=== PATIENT | male | born 1935 | race Caucasian/White ===

== ENCOUNTER 2016-12-11 15:32 | Emergency (ER) | payer MEDICARE, BC ==
[~2016-12-11] VITALS: Wt 108.9 kg
[~2016-12-11 15:32] MED LIST: AMARYL4 MG PO; ASPIRIN325 M2 PO; BYSTOLIC10 MG PO; CEPHALEXIN500 M1 PO; CLONIDINE0.1 MG; DIOVAN160 MG PO; FLOMAX0.4 MG PO; GLIMEPIRIDE1 MG PO; JANUVIA50 MG PO; KEFLEX500 MG PO; LOPRESSOR50 MG PO; METAMUCIL3.4 GM/DOS PO; MILK OF MAGNESI1 TAB PO; PRAVACHOL40 MG PO; PRAVASTATIN SOD80 MG PO; PROSCAR5 M1 PO; TEKTURNA150 MG PO; TOVIAZ8 MG PO; VALSARTAN160 MG; VICODIN 5/500 505 MG PO
[2016-12-11 15:33] VITALS: BP 174/76
[2016-12-11] MEDS ORDERED: GABAPENTIN TAB600 MG PO (15:34)
[2016-12-11] MEDS ORDERED: PAROXETINE HCL20 MG PO (15:37)
[2016-12-11 16:23] LABS: BASO % 0.3 % (0.0-1.0); EOS # 0.2 10*3/uL (0.0-0.4); EOS % 2.1 % (1.0-4.0); HEMATOCRIT 43.1 % (42.0-52.0); HEMOGLOBIN 14.4 g/dl (14.0-18.0); IG # 0.1 10*3/uL (0.0-0.1); LYMPH # 1.3 10*3/uL (1.3-4.4); LYMPH % 12.4 % (27.0-41.0); MEAN CORPUSCULAR HGB 28.4 pg (27.0-31.0); MEAN CORPUSCULAR HGB CONC 33.4 g/dl (33.0-37.0); MEAN PLATELET VOLUME 11.1 fl (9.6-12.3); MONO # 0.7 10*3/uL (0.1-1.0); MONO % 6.2 % (3.0-9.0); NEUT # 8.2 10*3/uL (2.3-7.9); NEUT % 78.4 % (47.0-73.0); PLATELET COUNT AUTOMATED 230 10*3/uL (130-400); RED BLOOD COUNT 5.07 10*6/uL (4.50-5.90); RED CELL DISTRI WIDTH 13.7 % (0-14.5); WHITE BLOOD COUNT 10.4 10*3/uL (4.8-10.8)
[2016-12-11 16:46] LABS: ALBUMIN 3.5 gm/dl (3.1-4.5); BILIRUBIN, TOTAL 0.6 mg/dl (0.2-1.0); POTASSIUM 4.9 mmol/L (3.5-5.1); TOTAL PROTEIN 7.3 gm/dL (6.4-8.2); URIC ACID 6.6 mg/dL (3.5-7.2)
[2016-12-11] MEDS ORDERED: CEPHALEXIN500 M1 PO (17:05)
== END 2016-12-11 17:07 | disposition home or self-care (01) ==
LOC: ED 15:32
PROVIDERS: Nurse Practitioner Family
DX: L03.116 Cellulitis of left lower limb (principal); Z90.89 Acquired absence of other organs; Z96.652 Presence of left artificial knee joint; Z79.82 Long term (current) use of aspirin; Z88.5 Allergy status to narcotic agent; N39.41 Urge incontinence

== ENCOUNTER 2020-01-12 18:11 | Emergency (ER) | payer MEDICARE, BC ==
[~2020-01-12] VITALS: Ht 177.8 cm; Wt 107.0 kg
[~2020-01-12 18:11] MED LIST changes: +GABAPENTIN TAB600 MG PO; +PAROXETINE HCL20 MG PO
[2020-01-12 18:52] LABS: BASO % 0.2 % (0.0-1.0); EOS # 0.2 10*3/uL (0.0-0.4); EOS % 1.7 % (1.0-4.0); HEMATOCRIT 47.8 % (42.0-52.0); HEMOGLOBIN 15.5 g/dl (14.0-18.0); LYMPH # 1.4 10*3/uL (1.3-4.4); LYMPH % 11.7 % (27.0-41.0); MEAN CELL VOLUME 87.7 fl (80.0-94.0); MEAN CORPUSCULAR HGB 28.4 pg (27.0-31.0); MEAN CORPUSCULAR HGB CONC 32.4 g/dl (33.0-37.0); MEAN PLATELET VOLUME 11.7 fl (9.6-12.3); MONO # 0.8 10*3/uL (0.1-1.0); MONO % 6.4 % (3.0-9.0); NEUT # 9.6 10*3/uL (2.3-7.9); NEUT % 79.3 % (47.0-73.0); PLATELET COUNT AUTOMATED 229 10*3/uL (130-400); RED BLOOD COUNT 5.45 10*6/uL (4.50-5.90); RED CELL DISTRI WIDTH 13.3 % (0-14.5); WHITE BLOOD COUNT 12.1 10*3/uL (4.8-10.8)
[2020-01-12 19:04] LABS: ACT PARTIAL THROMBO TIME 27.6 SECONDS (20.0-32.1); INTERNATIONAL NORM RATIO 0.9 (2.0-3.5)
[2020-01-12 19:08] LABS: ALBUMIN 3.6 gm/dl (3.1-4.5); CREATININE 1.55 mg/dL (0.70-1.30); POTASSIUM 4.7 mmol/L (3.5-5.1); TOTAL PROTEIN 7.1 gm/dL (6.4-8.2)
[2020-01-12 19:14] LABS: TROPONIN I 0.086 ng/ml (<0.045)
[2020-01-12 22:47] VITALS: BP 148/81
== END 2020-01-12 22:15 | disposition short-term general hospital (02) ==
LOC: ED 18:11
PROVIDERS: Emergency Medicine
DX: I48.20 Chronic atrial fibrillation, unspecified (principal); R79.89 Other specified abnormal findings of blood chemistry; I11.0 Hypertensive heart disease with heart failure; I50.9 Heart failure, unspecified; E11.9 Type 2 diabetes mellitus without complications; E78.5 Hyperlipidemia, unspecified; M19.90 Unspecified osteoarthritis, unspecified site; Z88.5 Allergy status to narcotic agent; Z79.2 Long term (current) use of antibiotics; Z79.82 Long term (current) use of aspirin; Z79.899 Other long term (current) drug therapy

== ENCOUNTER 2020-02-11 20:42 | Inpatient (IN) | payer MEDICARE, BC ==
[2020-02-11] VITALS (13 sets, daily range): BP systolic 90–153; BP diastolic 52–84
[~2020-02-11] VITALS: Ht 177.8 cm; Wt 105.3 kg
[~2020-02-11 20:42] MED LIST changes: +ASPIRIN CHEWABL81 MG PO; -ASPIRIN325 M2 PO
[2020-02-11 21:04] LABS: BASO % 0.2 % (0.0-1.0); EOS # 0.2 10*3/uL (0.0-0.4); EOS % 2.1 % (1.0-4.0); HEMATOCRIT 47.4 % (42.0-52.0); HEMOGLOBIN 15.3 g/dl (14.0-18.0); LYMPH # 1.2 10*3/uL (1.3-4.4); LYMPH % 11.8 % (27.0-41.0); MEAN CELL VOLUME 88.9 fl (80.0-94.0); MEAN CORPUSCULAR HGB 28.7 pg (27.0-31.0); MEAN CORPUSCULAR HGB CONC 32.3 g/dl (33.0-37.0); MEAN PLATELET VOLUME 11.2 fl (9.6-12.3); MONO # 0.6 10*3/uL (0.1-1.0); MONO % 6.3 % (3.0-9.0); NEUT # 7.8 10*3/uL (2.3-7.9); NEUT % 78.9 % (47.0-73.0); PLATELET COUNT AUTOMATED 249 10*3/uL (130-400); RED BLOOD COUNT 5.33 10*6/uL (4.50-5.90); RED CELL DISTRI WIDTH 13.4 % (0-14.5); WHITE BLOOD COUNT 9.9 10*3/uL (4.8-10.8)
[2020-02-11 21:21] LABS: ACT PARTIAL THROMBO TIME 27.9 SECONDS (20.0-32.1)
[2020-02-11] MEDS ORDERED: OMEPRAZOLE MAGN20 MG PO (21:21)
[2020-02-11] MEDS ORDERED: CYCLOBENZAPRINE10 MG PO (21:22)
[2020-02-11] MEDS ORDERED: LISINOPRIL10 M1 PO (21:22)
[2020-02-11] MEDS ORDERED: LASIX20 MG PO (21:26)
[2020-02-11 21:27] LABS: ALBUMIN 3.3 gm/dl (3.1-4.5); CREATININE 1.85 mg/dL (0.70-1.30); POTASSIUM 4.4 mmol/L (3.5-5.1)
[2020-02-11] MEDS ORDERED: HYDROCODONE-AC1 EAC1 PO (21:28)
[2020-02-11 21:29] LABS: TROPONIN I 0.097 ng/ml (<0.045)
[2020-02-11] MEDS ORDERED: METOPROLOL SUCC25 M2 PO (21:29)
[2020-02-11] MEDS ORDERED: CLONIDINE HCL0.1 MG PO (23:48)
[2020-02-11] MEDS ORDERED: OXYGEN NAS (23:49)
[2020-02-12 03:37] LABS: BASO % 0.4 % (0.0-1.0); EOS # 0.2 10*3/uL (0.0-0.4); EOS % 2.3 % (1.0-4.0); HEMATOCRIT 44.8 % (42.0-52.0); HEMOGLOBIN 14.3 g/dl (14.0-18.0); LYMPH # 1.5 10*3/uL (1.3-4.4); LYMPH % 17.7 % (27.0-41.0); MEAN CELL VOLUME 89.8 fl (80.0-94.0); MEAN CORPUSCULAR HGB 28.7 pg (27.0-31.0); MEAN CORPUSCULAR HGB CONC 31.9 g/dl (33.0-37.0); MONO # 0.7 10*3/uL (0.1-1.0); MONO % 8.3 % (3.0-9.0); NEUT # 5.9 10*3/uL (2.3-7.9); NEUT % 70.7 % (47.0-73.0); PLATELET COUNT AUTOMATED 227 10*3/uL (130-400); RED BLOOD COUNT 4.99 10*6/uL (4.50-5.90); RED CELL DISTRI WIDTH 13.5 % (0-14.5); WHITE BLOOD COUNT 8.3 10*3/uL (4.8-10.8)
[2020-02-12 03:50] LABS: CREATININE 1.59 mg/dL (0.70-1.30); POTASSIUM 4.8 mmol/L (3.5-5.1)
[2020-02-12 03:55] LABS: PHOSPHOROUS 3.9 mg/dL (2.5-4.9)
[2020-02-12 04:01] LABS: THYROID STIM HORMONE (HS) 4.48 uIU/ml (0.358-4.75)
[2020-02-12 07:45] LABS: VITAMIN D, 25-HYDROXY 14.5 ng/mL (30-100)
== END 2020-02-12 08:45 | disposition short-term general hospital (02) | DRG 280 ==
LOC: ED 20:42 → 4E 22:07 → EDHOLD 22:07 → 4E 23:04
PROVIDERS: Emergency Medicine; Family Medicine; ADMIT Internal Medicine
DX: I21.4 Non-ST elevation (NSTEMI) myocardial infarction (principal); N17.0 Acute kidney failure with tubular necrosis; J96.90 Respiratory failure, unspecified, unspecified whether with hypoxia or hypercapnia; I47.1 Supraventricular tachycardia; E87.1 Hypo-osmolality and hyponatremia; E44.0 Moderate protein-calorie malnutrition; I11.0 Hypertensive heart disease with heart failure; K21.9 Gastro-esophageal reflux disease without esophagitis; F32.9 Major depressive disorder, single episode, unspecified; Z96.653 Presence of artificial knee joint, bilateral; Z96.1 Presence of intraocular lens; N40.0 Benign prostatic hyperplasia without lower urinary tract symptoms; I50.9 Heart failure, unspecified; E83.41 Hypermagnesemia; E11.65 Type 2 diabetes mellitus with hyperglycemia; I48.0 Paroxysmal atrial fibrillation; E78.5 Hyperlipidemia, unspecified; E11.42 Type 2 diabetes mellitus with diabetic polyneuropathy; E66.9 Obesity, unspecified; Z88.5 Allergy status to narcotic agent; Z88.8 Allergy status to other drugs, medicaments and biological substances; Z79.82 Long term (current) use of aspirin; Z79.899 Other long term (current) drug therapy; Z68.33 Body mass index [BMI] 33.0-33.9, adult; Z98.42 Cataract extraction status, left eye; Z98.41 Cataract extraction status, right eye; Z90.5 Acquired absence of kidney; Z90.49 Acquired absence of other specified parts of digestive tract; Z82.49 Family history of ischemic heart disease and other diseases of the circulatory system

== ENCOUNTER 2020-08-14 10:05 | Inpatient (IN) | payer MEDICARE, BC ==
[~2020-08-14] VITALS: Ht 175.2 cm; Wt 108.2 kg
[~2020-08-14 10:05] MED LIST changes: +CLONIDINE HCL0.1 MG PO; +CYCLOBENZAPRINE10 MG PO; +HYDROCODONE-AC1 EAC1 PO; +LASIX20 MG PO; +LISINOPRIL10 M1 PO; +METOPROLOL SUCC25 M2 PO; +OMEPRAZOLE MAGN20 MG PO; +OXYGEN NAS
[2020-08-14 10:07] VITALS: BP 141/76
[2020-08-14 10:42] LABS: BASO % 0.3 % (0.0-1.0); EOS % 0.4 % (1.0-4.0); HEMATOCRIT 42.9 % (42.0-52.0); LYMPH # 0.7 10*3/uL (1.3-4.4); LYMPH % 5.8 % (27.0-41.0); MEAN CELL VOLUME 87.7 fl (80.0-94.0); MEAN CORPUSCULAR HGB CONC 30.8 g/dl (33.0-37.0); MEAN PLATELET VOLUME 11.6 fl (9.6-12.3); MONO # 0.6 10*3/uL (0.1-1.0); MONO % 5.7 % (3.0-9.0); NEUT # 9.8 10*3/uL (2.3-7.9); NEUT % 87.4 % (47.0-73.0); PLATELET COUNT AUTOMATED 198 10*3/uL (130-400); RED BLOOD COUNT 4.89 10*6/uL (4.50-5.90); RED CELL DISTRI WIDTH 13.9 % (0-14.5); WHITE BLOOD COUNT 11.2 10*3/uL (4.8-10.8)
[2020-08-14 10:58] LABS: ACT PARTIAL THROMBO TIME 28.3 SECONDS (20.0-32.1)
[2020-08-14 11:00] LABS: ALBUMIN 3.3 gm/dl (3.1-4.5); CREATININE 1.45 mg/dL (0.70-1.30); POTASSIUM 4.7 mmol/L (3.5-5.1)
[2020-08-14 11:09] LABS: TROPONIN I 0.047 ng/ml (<0.045)
[2020-08-14 11:20] LABS: ABG BASE EXCESS 1.4 mmol/L (-2.0-2.0); ARTERIAL BLOOD GAS PH 7.328 (7.35-7.45)
--- NOTE | 2020-08-14 13:12 | NUR ---
PT LEAVING DEPARTMENT FOR TRANSPORT TO ROOM 428
[2020-08-14 13:13] VITALS: BP 138/76
--- NOTE | 2020-08-14 13:30 | NUR ---
Time: 1329 A 84 year old MALE admitted to under services of FLO RUBIN DO. Pt. arrived via bed from ER PA. Chief complaint: CHF. GAGANDEEP BERGERON
[2020-08-14 13:45] VITALS: BP 154/69
[2020-08-14 16:00] VITALS: BP 153/86
[2020-08-14 20:00] VITALS: BP 164/74
--- NOTE | 2020-08-14 20:00 | NUR ---
INCONTINENT AT THIS TIME & YELLING OUT. PATRICIA CARE PROVIDED. PT. ENCOURAGED TO USE CALL LIGHT. VERBALIZED UNDERSTANDING. CALL LIGHT WITHIN REACH/BED ALARM INTACT.
--- NOTE | 2020-08-14 22:00 | NUR ---
TOOK PO MEDICATION WITH MUCH DIFFICULTY. ASSIST OF PA TO ROLL PATIENT OVER ON HIS BACK TO GIVE HIM A PO MEDICATION.
[2020-08-15] VITALS: BP 166/76
--- NOTE | 2020-08-15 06:00 | NUR ---
BLADDER SCANNED FOR APPROXIMATELY [address] FRENCH PERTAINING TO BLADDER SCAN RESULTS. NO NEW ORDERS RECEIVED.
[2020-08-15 06:07] LABS: BASO % 0.2 % (0.0-1.0); EOS # 0.1 10*3/uL (0.0-0.4); EOS % 1.2 % (1.0-4.0); HEMATOCRIT 43.1 % (42.0-52.0); LYMPH # 0.7 10*3/uL (1.3-4.4); LYMPH % 8.4 % (27.0-41.0); MEAN CELL VOLUME 88.5 fl (80.0-94.0); MEAN CORPUSCULAR HGB 27.5 pg (27.0-31.0); MEAN CORPUSCULAR HGB CONC 31.1 g/dl (33.0-37.0); MEAN PLATELET VOLUME 11.7 fl (9.6-12.3); MONO # 0.8 10*3/uL (0.1-1.0); MONO % 9.4 % (3.0-9.0); NEUT # 6.9 10*3/uL (2.3-7.9); NEUT % 80.2 % (47.0-73.0); PLATELET COUNT AUTOMATED 191 10*3/uL (130-400); RED BLOOD COUNT 4.87 10*6/uL (4.50-5.90); WHITE BLOOD COUNT 8.5 10*3/uL (4.8-10.8)
--- NOTE | 2020-08-15 06:15 | NUR ---
PT. VOIDED APPROXIMATELY 50 CC'S; URINE SPECIMEN SENT.
[2020-08-15 06:19] LABS: ACT PARTIAL THROMBO TIME 28.3 SECONDS (20.0-32.1)
[2020-08-15 06:25] LABS: ALBUMIN 3.2 gm/dl (3.1-4.5); ALKALINE PHOSPHATASE 59 U/L (45-117); BUN 30 mg/dl (7-24); CHLORIDE 106 mmol/L (98-107); CREATININE 1.32 mg/dL (0.70-1.30); POTASSIUM 4.5 mmol/L (3.5-5.1); SGOT/AST 8 IU/L (3-35); SGPT/ALT 12 U/L (12-78); SODIUM 140 mmol/L (136-145); TOTAL PROTEIN 6.8 gm/dL (6.4-8.2)
[2020-08-15 06:41] LABS: BILIRUBIN NEGATIVE; BLOOD NEGATIVE (NEGATIVE); CLARITY CLEAR (CLEAR); COLOR YELLOW (YELLOW); GLUCOSE NEGATIVE; KETONE NEGATIVE; LEUKO ESTERASE NEGATIVE (NEGATIVE); NITRITE NEGATIVE (NEGATIVE); SPECIFIC GRAVITY 1.015 (1.001-1.030); UROBILINOGEN 0.2 E.U./dl (0.0-1.0)
[2020-08-15 06:49] LABS: BACTERIA 2+; HYALINE CAST 16-20
[2020-08-15 06:50] LABS: MUCOUS 2+
[2020-08-15 07:30] LABS: VITAMIN D, 25-HYDROXY 17.7 ng/mL (30-100)
[2020-08-15 08:00] VITALS: BP 151/62
--- NOTE | 2020-08-15 08:16 | NUR ---
24 HR chart check completed.
--- NOTE | 2020-08-15 08:35 | NUR ---
PATIENT ASSISTED TO BR, LARGE BM
--- NOTE | 2020-08-15 08:45 | NUR ---
ASSISTED TO RECLINER AND POSITIONED FOR COMFORT. RESPIRATIONS EASY. LUNGS DIMINISHED, CLEAR. PULSE OX 94% 4L. TRACE PEDAL EDEMA. CALL LIGHT WITHIN REACH. NO VOICED COMPLAINTS. BED ALARM MAINTAINED FOR SAFETY
--- NOTE | 2020-08-15 10:00 | NUR ---
DR JAEVD AND RESIDENT HERE TO ASSESS PATIENT AND DISCUSS PLAN OF CARE
[2020-08-15 12:00] VITALS: BP 148/78
--- NOTE | 2020-08-15 12:00 | NUR ---
DR DANIEL CALLED IN, REQUESTING O2 BE TITRATED. PULSE OX 94-95% 4L. TITRATED TO 3L. WILL MONITOR
[2020-08-15 16:00] VITALS: BP 138/67
--- NOTE | 2020-08-15 16:00 | NUR ---
PULSE OX 99% 3L. DENIES SHORTNESS OF BREATH. NO DISTRESS. CALL LIGHT WITHIN REACH. NO VOICED COMPLAINTS
--- NOTE | 2020-08-15 18:00 | NUR ---
PATIENT SITTING IN RECLINER. DISORIENTED TO PLACE, REORIENTS EASILY. NO SHORTNESS OF BREATH NOTED, O2 FURTHER TITRATED TO 2L. CALL LIGHT WITHIN REACH. NO VOICED COMPLAINTS
--- NOTE | 2020-08-15 18:42 | NUR ---
REQUESTED AND RECEIVED TYLENOL PER PRN ORDER FOR COMPLAINTS OF HEADACHE RATING A 5. CALL LIGHT WITHIN REACH WILL MONITOR
--- NOTE | 2020-08-15 19:20 | NUR ---
STATES RELIEF FROM EARLIER TYLENOL. CALL LIGHT WITHIN REACH. NO FURTHER VOICED COMPLAINTS
[2020-08-15 20:00] VITALS: BP 113/66
--- NOTE | 2020-08-15 20:00 | NUR ---
[place]. PLEASANT AND COOPERATIVE. LYING IN BED ON LT SIDE. TOOK PO MEDS WITHOUT DIFFICULTY. NO C/O VOICED. CALL LIGHT IN REACH.
[2020-08-16] VITALS: BP 115/78
--- NOTE | 2020-08-16 | NUR ---
RESTING QUIETLY IN BED. VSS
--- NOTE | 2020-08-16 05:18 | NUR ---
24 HR chart check completed.
[2020-08-16 06:25] LABS: BASO % 0.3 % (0.0-1.0); EOS # 0.2 10*3/uL (0.0-0.4); EOS % 2.7 % (1.0-4.0); HEMATOCRIT 44.2 % (42.0-52.0); LYMPH # 0.8 10*3/uL (1.3-4.4); LYMPH % 11.2 % (27.0-41.0); MEAN CELL VOLUME 88.8 fl (80.0-94.0); MEAN CORPUSCULAR HGB 27.7 pg (27.0-31.0); MEAN CORPUSCULAR HGB CONC 31.2 g/dl (33.0-37.0); MEAN PLATELET VOLUME 11.3 fl (9.6-12.3); MONO # 0.6 10*3/uL (0.1-1.0); MONO % 8.5 % (3.0-9.0); NEUT # 5.8 10*3/uL (2.3-7.9); NEUT % 76.8 % (47.0-73.0); PLATELET COUNT AUTOMATED 180 10*3/uL (130-400); RED BLOOD COUNT 4.98 10*6/uL (4.50-5.90); RED CELL DISTRI WIDTH 13.9 % (0-14.5); WHITE BLOOD COUNT 7.5 10*3/uL (4.8-10.8)
[2020-08-16 06:36] LABS: CREATININE 1.46 mg/dL (0.70-1.30); POTASSIUM 4.6 mmol/L (3.5-5.1)
[2020-08-16 08:00] VITALS: BP 158/72
--- NOTE | 2020-08-16 10:30 | NUR ---
Watch Supervisor in to talk to patient. Patient states lives at home with his . There are 0 steps in the home. Physician: Dr. Vidal Hernandez Pharmacy: [facility] health services: none Patient's level of ADLs: MINIMAL ASSIST Patient has working utilities: yes DME: cane, walker, O2 @ 2L nc, portable O2 tanks, O2 supplier [place] Follow-up physician's appointment after d/c: will be made by the hospitalist nurse director upon discharge Does patient want to access PORTAL?: no Discharge plan discussed with patient. He is sitting up in his bedside chair. He lives at home with his . He states he is independent in his ADLs and ambulates with either a cane or a walker. Discussed home health care services and he declines. CM will continue to follow for any discharge planning needs. When medically stable he will be discharged to home. He states his will provide transportation on discharge. CLARI BRINK
--- NOTE | 2020-08-16 11:50 | NUR ---
PT ASSESSED FOR HOME O2. PT CURRENTLY HAS HOME O2 AT HOME. ASSESSING PT FOR ANY INCREASED O2 NEEDS. SPO2 RA AT REST: 80-85% SPO2 WITH 2 L NC AT REST: 87-91% APO2 WITH 3 L NC AT REST 90-93% PT AMBULATED ON 3 L NC: SPO2 89-94% PT REQUIRES CONTINUOUS O2 AT 3 L NC AT REST AND WITH AMBULATION
--- NOTE | 2020-08-16 12:08 | NUR ---
Spoke to Margot at [facility] regarding patient O2 supply. They do not have patient. Spoke to Eden at [facility] and patient does not have O2 with them. Spoke to , Christina, regarding home O2 supplier. Patient has [employer]. He uses O2 @ 2L nc and portable O2 tanks. He doesn't have a nebulizer at home.
--- NOTE | 2020-08-16 14:40 | NUR ---
PATIENT DISCHARGED TO HOME. IV AND BIKE MECHANIC DISCONTINUED. DISCHARGE INSTRUCTIONS GIVEN AND REVIEWED. RN TALKED WITH SPOUSE ON THE PHONE. DISCUSSED DISCHARGE INSTRUCTIONS WITH HER.
== END 2020-08-16 14:48 | disposition home or self-care (01) | DRG 189 ==
LOC: ED 10:05 → 4E 12:26 → EDHOLD 12:26 → 4E 12:47
PROVIDERS: Emergency Medicine; Internal Medicine; ADMIT Internal Medicine; ATTEND Internal Medicine
DX: J96.21 Acute and chronic respiratory failure with hypoxia (principal); Z68.45 Body mass index [BMI] 70 or greater, adult; I50.9 Heart failure, unspecified; J96.22 Acute and chronic respiratory failure with hypercapnia; N40.0 Benign prostatic hyperplasia without lower urinary tract symptoms; I25.10 Atherosclerotic heart disease of native coronary artery without angina pectoris; E53.8 Deficiency of other specified B group vitamins; I45.10 Unspecified right bundle-branch block; D72.829 Elevated white blood cell count, unspecified; D64.9 Anemia, unspecified; E83.41 Hypermagnesemia; R79.89 Other specified abnormal findings of blood chemistry; E66.9 Obesity, unspecified; K21.9 Gastro-esophageal reflux disease without esophagitis; E11.42 Type 2 diabetes mellitus with diabetic polyneuropathy; E11.65 Type 2 diabetes mellitus with hyperglycemia; E78.5 Hyperlipidemia, unspecified; I11.0 Hypertensive heart disease with heart failure; F32.9 Major depressive disorder, single episode, unspecified; I25.2 Old myocardial infarction